=== PATIENT | female | born 1940 | race Two or more races ===

== ENCOUNTER 2018-10-31 06:38 | Day surgery (SDC) | payer OTHER ==
[~2018-10-31 06:38] MED LIST: GLUCOPHAGE XR750 MG PO; LOSARTAN POTASS25 MG PO; NORVASC2.5 M1 PO; PREVISION; ZOCOR20 MG PO
== END 2018-10-31 14:10 | disposition home or self-care (01) ==
LOC: CIR.AMB 06:38
DX: R10.2 Pelvic and perineal pain (principal)

== ENCOUNTER 2023-04-18 07:17 | Outpatient (CLI) | payer OTHER | END 2023-04-18 07:23 | disposition home or self-care (01) | LOC: NUCLEAR 07:17 | PROVIDERS: ATTEND Internal Medicine Cardiovascular Disease | DX: I20.9 Angina pectoris, unspecified (principal) | CPT/HCPCS: 78452; 93017; A9500; J0153 ==